=== PATIENT | female | born 1995 | race Caucasian/White ===

== ENCOUNTER 2021-09-22 20:17 | Emergency (ER) | payer OTHER, SELFPAY ==
--- NOTE | ~2021-09-22 | CT_ITS ---
EXAMINATION: CT abdomen pelvis w con DATE: 09/22/2021 22:44 INDICATION: Right lower quadrant pain. TECHNIQUE: Computed tomography (CT) of the abdomen and pelvis was performed with 100 cc Omnipaque 350 intravenous contrast. The dose-length product was 649.36 mGy-cm. Automated exposure control and iter ative reconstruction technique were employed. COMPARISON: None. FINDINGS: Lung bases are unremarkable. Heart size normal. No significant pleural or pericardial effus ion. No significant vascular abnormality. No lymphadenopathy. The liver, spleen, pancreas, adrenal glands and kidneys are unremarkable. Gallbladder is present. Non obstructive bowel gas pattern. The appendix is normal caliber without significant periappendiceal inf lammation to suggest appendicitis. There is a 3.3 cm complicated left ovarian cyst. Moderate free flu id in the pelvis. No free air. No acute osseous abnormality. IMPRESSION: 1. Septated 3.3 cm left ovarian cyst. Moderate free fluid in the pelvis. Reviewed, dictated and finalized at location A.
[2021-09-22 20:34] VITALS: BP 145/78; PULSE 87; RESP 18; TEMP 36.8; O2SAT 99
[2021-09-22 21:07] LABS: Basophils Percent Auto 0.2 % (0.2-1.2); Eosinophils Absolute Auto 0.1 K/mm3 (0-0.3); Eosinophils Percent Auto 0.7 % (0-4.4); Hematocrit 41.3 % (37.0-47.0); Hemoglobin 14.2 g/dL (12.0-15.0); Immature Granulocyte Absolute 0.04 K/mm3 (0.00-0.031); Immature Granulocyte Percent A 0.4 % (0-0.5); Lymphocytes Absolute Auto 0.99 K/mm3 (0.9-3.2); Lymphocytes Percent Auto 9.2 % (18.3-44.2); Mean Corpuscular HGB Conc 34.4 g/dl (32-36); Mean Corpuscular Hemoglobin 30.9 pg (26-34); Mean Corpuscular Volume 89.8 fl (80-100); Mean Platelet Volume 10.8 fl (7.4-10.4); Monocytes Absolute Auto 0.5 K/mm3 (0.1-0.6); Monocytes Percent Auto 4.7 % (2.6-8.5); Neutrophils Absolute Auto 9.1 K/mm3 (1.3-6.7); Neutrophils Percent Auto 84.8 % (45.5-73.1); Platelet Count Result 200 k/mm3 (150-375); Red Cell Distribution Width 12.5 % (11.5-14.5); White Blood Count 10.7 K/mm3 (4.5-10.0)
[2021-09-22] MEDS: SODIUM CHLORIDE 0.9% IV 1,000 ML 999 ML IV CONT (21:07)
[2021-09-22] MEDS: ONDANSETRON INJ 4 MG/2 ML VIAL IV PUSH (21:08)
[2021-09-22 21:22] LABS: Add Urine Microscopic? NO; Appearance Urine Clear (Clear); Bilirubin Urine Negative (Negative); Blood Urine Negative (Negative); Color Urine Yellow (Yellow); Glucose Urine UA Negative (Negative); Ketones Urine Negative (Negative); Leukocyte Esterase Ur Negative LEU/UL (Negative); Nitrate Urine Negative (Negative); Protein Urine Negative (Negative); Specific Grav Ur 1.015 (1.001-1.035); Urobilinogen Urine Negative mg/dL (<2.0)
[2021-09-22 21:23] LABS: Alanine Aminotransferase 19 U/L (4-35); Albumin Level 4.7 g/dL (3.5-5.1); Alkaline Phosphatase 77 U/L (38-126); Anion Gap 9 mmol/L (8-16); Aspartate Amino Transferase 26 U/L (14-36); Bilirubin,Total 0.4 mg/dL (0.2-1.3); Blood Urea Nitrogen 10 mg/dL (7-17); Calcium 9.5 mg/dL (8.4-10.2); Carbon Dioxide 24 mmol/L (22-30); Chloride 101 mmol/L (98-107); Estimated CRCL calculation 121 ml/min; Estimated Glomerular Filt Rate > 60; Glucose 91 mg/dL (65-110); Lipase 62 U/L (23-300); Potassium 3.8 mmol/L (3.4-5.0); Sodium 134 mmol/L (137-145)
[2021-09-22] MEDS: KETOROLAC 30 MG/ML VIAL (*BKC) IV PUSH (22:32)
--- NOTE | 2021-09-22 23:03 | ED.NAVMDI ---
HPI - Nausea/Vomiting/Diarrhea General Chief complaint: Nausea/Vomiting/Diarrhea Stated complaint: N/V, bodyaches Time Seen by Provider: 09/22/21 20:45 Source: patient and family Mode of arrival: ambulatory Limitations: no limitations History of Present Illness HPI Narrative: 25-year-old with no major medical problems here with complaints of nausea, vomiting and diarrhea and right lower abdominal pain since last night. Patient states that she ate spaghetti made by her boyfriend both of them got sick after eating. But she continues to have nausea and vomiting and pain. No history of fever or chills. MD elicited complaint: nausea, vomiting, diarrhea and abdominal pain Onset (ago): day(s) (1) Description of vomiting: food contents and watery Description of diarrhea: watery Associated nausea: Yes Associated abdominal pain: Yes Location of pain: RLQ Pain consistency: constant Severity: moderate Quality: cramping Exacerbating factors: none Relieving factors: none Context: possible food poisoning Associated symptoms: denies other symptoms Related Data Allergies Allergy/AdvReac Type Severity Reaction Status Date / Time amoxicillin Allergy Unknown Verified 09/22/21 20:36 Review of Systems Review of Systems: All systems reviewed & are unremarkable except as noted in HPI and below Constitutional: Constitutional: Reports no additional constitutional complaints Eyes: Eyes: Reports no additional eye complaints ENT: Reports system reviewed and no additional complaints, except as documented Cardiovascular: Cardiovascular: Reports no additional cardiovascular complaints Respiratory: Respiratory: Reports no additional respiratory complaints Gastrointestinal: Gastrointestinal: Reports as per HPI Musculoskeletal: Musculoskeletal: Reports no additional musculoskeletal complaints Integumentary/Breasts: Skin/Breast: Reports system reviewed and no additional complaints, except as docu Neurologic: Reports system reviewed and no additional complaints, except as documented Exam Narrative: GENERAL: Well-appearing, well-nourished, and in no acute distress. HEAD: Normocephalic, atraumatic. EYES: PERRLA and EOMI. NECK: Supple. CHEST: Clear to auscultation. No respiratory distress. HEART: Regular rate and rhythm. No murmur heard. Normal peripheral pulses. ABDOMEN: Soft, mild tenderness in the right lower abd , nondistended EXTREMITIES: Normal range of motion. No edema. SKIN: Warm, dry, no rash. NEURO: No focal deficits. Alert and oriented x3. PSYCH: Normal mood and affect. Course Course Emergency Course: Patient feeling much better after IV Toradol for pain and Zofran for nausea given IV fluids. Informed her about her lab work and CT findings. At this time her pain most likely is from gastroenteritis. Advised her to take Zofran for nausea as needed and Bentyl for pain. She does feel comfortable going home. Vital Signs Vital signs: Vital Signs Temperature 36.8 C 09/22/21 20:34 Pulse Rate 87 09/22/21 20:34 Respiratory Rate 18 09/22/21 20:34 Blood Pressure 145/78 H 09/22/21 20:34 Pulse Oximetry 99 09/22/21 20:34 Temperature 36.8 C 09/22/21 20:34 Pulse Rate 87 09/22/21 20:34 Respiratory Rate 18 09/22/21 20:34 Blood Pressure 145/78 H 09/22/21 20:34 Pulse Oximetry 99 09/22/21 20:34 MDM - Nausea/Vomiting/Diarrhea Differential Diagnosis Differential diagnosis: Likely food poisoning, gastroenteritis and dehydration Lab Data Result diagrams: 09/22/21 21:00 09/22/21 21:00 Labs: Lab Results 09/22/21 09/22/21 09/22/21 Range/Units 21:00 21:00 21:12 WBC 10.7 H (4.5-10.0) K/mm3 RBC 4.60 (4.2-5.4) M/mm3 Hgb 14.2 (12.0-15.0) g/dL Hct 41.3 (37.0-47.0) % MCV 89.8 (80-100) fl MCH 30.9 (26-34) pg MCHC 34.4 (32-36) g/dl RDW 12.5 (11.5-14.5) % Plt Count 200 (150-375) k/mm3 MPV 10.8 H (7.4-10.4) fl Immature Gran % (Auto)
--- NOTE | 2021-09-22 23:10 | PC.NURSE ---
assumed care of pt at this time, report received from Tayler BISWAS. Pt states she feels better after pain medication, rates pain 6/10.
[2021-09-22 23:24] VITALS: BP 125/68; PULSE 74; RESP 16; O2SAT 99
== END 2021-09-22 23:27 | disposition home or self-care (01) ==
PROVIDERS: Emergency Provider Family Medicine
DX: K52.9 Noninfective gastroenteritis and colitis, unspecified (principal)
CPT/HCPCS: 36415; 74177; 80053; 81003; 81025; 83690; 85025; 96361; 96374; 96375; 99284; J1885; J2405; J7030; Q9967

== ENCOUNTER 2022-01-28 21:12 | Emergency (ER) | payer OTHER, SELFPAY ==
--- NOTE | ~2022-01-28 | CT_ITS ---
EXAMINATION: CT abdomen pelvis wo con DATE: 01/28/2022 23:09 INDICATION: Left flank pain TECHNIQUE: Computed tomography (CT) of the abdomen and pelvis was performed without intravenous contr ast. The dose-length product was 255.18 mGy-cm. Automated exposure control and iterative reconstructi on technique were employed. COMPARISON: CT dated 09/22/2021. FINDINGS: Lung bases unremarkable. Heart size normal. No significant pleural or pericardial effusion. The liver, spleen, pancreas, adrenal glands and kidneys are unremarkable. No renal stones. No ureter al stones or hydronephrosis. Nonobstructive bowel gas pattern. No significant vascular abnormality. N o lymphadenopathy. Colonic diverticulosis without evidence for diverticulitis. No acute osseous abnor mality. Gallbladder is present. Normal appendix. IMPRESSION: 1. No acute abdominal abnormality. No findings to account for symptoms. Reviewed, dictated and finalized at location A. [facility] [employer]
--- NOTE | ~2022-01-28 | XR_ITS ---
EXAMINATION: XR chest 2V 01/28/2022 22:35 INDICATION: Cough PROCEDURE: 2 view chest COMPARISON: No prior studies for comparison. FINDINGS: The lungs are clear. The cardiomediastinal silhouette is within normal limits. There are no pleural effusions. There is no pneumothorax suspected. IMPRESSION: 1: NO ACUTE CARDIOPULMONARY DISEASE. Reviewed, dictated and finalized at location A. [employer]
[2022-01-28 21:38] VITALS: BP 130/70; PULSE 102; RESP 18; TEMP 38.8; O2SAT 99
[2022-01-28 22:33] LABS: Basophils Percent Auto 0.2 % (0.2-1.2); Hematocrit 36.3 % (37.0-47.0); Hemoglobin 12.3 g/dL (12.0-15.0); Immature Granulocyte Absolute 0.02 K/mm3 (0.00-0.031); Immature Granulocyte Percent A 0.5 % (0-0.5); Lymphocytes Absolute Auto 0.57 K/mm3 (0.9-3.2); Lymphocytes Percent Auto 14.2 % (18.3-44.2); Mean Corpuscular HGB Conc 33.9 g/dl (32-36); Mean Corpuscular Hemoglobin 30.4 pg (26-34); Mean Corpuscular Volume 89.9 fl (80-100); Mean Platelet Volume 10.9 fl (7.4-10.4); Monocytes Absolute Auto 0.6 K/mm3 (0.1-0.6); Monocytes Percent Auto 15.7 % (2.6-8.5); Neutrophils Absolute Auto 2.8 K/mm3 (1.3-6.7); Neutrophils Percent Auto 68.4 % (45.5-73.1); Platelet Count Result 190 k/mm3 (150-375); Red Blood Count 4.04 M/mm3 (4.2-5.4); Red Cell Distribution Width 12.7 % (11.5-14.5)
[2022-01-28] MEDS: ACETAMINOPHEN 500 MG TABLET 1000 MG PO (22:39)
[2022-01-28] MEDS: SODIUM CHLORIDE 0.9% IV 1,000 ML 999 ML IV CONT (22:39)
[2022-01-28 22:41] LABS: Alanine Aminotransferase 20 U/L (4-35); Albumin Level 4.6 g/dL (3.5-5.1); Alkaline Phosphatase 62 U/L (38-126); Anion Gap 10 mmol/L (8-16); Aspartate Amino Transferase 35 U/L (14-36); Bilirubin,Total 0.3 mg/dL (0.2-1.3); Blood Urea Nitrogen 8 mg/dL (7-17); Calcium 8.6 mg/dL (8.4-10.2); Carbon Dioxide 22 mmol/L (22-30); Chloride 106 mmol/L (98-107); Estimated CRCL calculation 117 ml/min; Estimated Glomerular Filt Rate > 60; Glucose 86 mg/dL (65-110); Potassium 3.5 mmol/L (3.4-5.0); Sodium 138 mmol/L (137-145)
[2022-01-28 22:42] LABS: Add Urine Microscopic? YES; Appearance Urine Cloudy (Clear); Bacteria Urine Trace /hpf; Bilirubin Urine Negative (Negative); Blood Urine 1+ (Negative); Color Urine Yellow (Yellow); Glucose Urine UA Negative (Negative); Ketones Urine Negative (Negative); Leukocyte Esterase Ur Negative LEU/UL (Negative); Mucus Urine Few /lpf; Nitrate Urine Negative (Negative); Protein Urine Negative (Negative); Specific Grav Ur 1.029 (1.001-1.035); Squamous Epithelial Cell Urine Few /hpf (Few); WBC Urine 0-3 /hpf
[2022-01-28 23:30] VITALS: BP 124/71; PULSE 87; RESP 16; TEMP 37.8; O2SAT 96
[2022-01-28] MEDS: KETOROLAC 30 MG/ML VIAL (*BKC) IV PUSH (23:48)
--- NOTE | 2022-01-28 23:51 | ED.GENADULT ---
HPI - General Adult General Chief complaint: Upper Respiratory Infection Stated complaint: fever, lower back pain Time Seen by Provider: 01/28/22 22:02 History of Present Illness HPI narrative: Patient is a 26-year-old female who presents ER with mild left-sided abdominal pain. Cramping going to left back. Associated with fever. No urinary frequency urgency or dysuria. No diarrhea or constipation. Denies any vaginal bleeding or discharge. Recently diagnosed with COVID 2 months ago but has improved. She reports since then she has had chronic rhinorrhea with cough. She has no new shortness of breath or change in her mucus. No sinus headache or tenderness of the face. Related Data Home Medications Medication Instructions Recorded Confirmed norethindrone-e.estradiol-iron tablet 01/28/22 [Aurovela Fe 1-20 (28)] Allergies Allergy/AdvReac Type Severity Reaction Status Date / Time amoxicillin Allergy Hives Verified 01/28/22 22:13 Review of Systems Review of Systems: All systems reviewed & are unremarkable except as noted in HPI and below Constitutional: Constitutional: Denies chills, Denies fever(s) and Denies weakness ENT: Reports nasal congestion and Denies sore throat Cardiovascular: Cardiovascular: Denies chest pain, Denies rapid heart rate and Denies radiating jaw, neck or arm pain Respiratory: Respiratory: Reports cough, Denies dyspnea and Denies wheezing Gastrointestinal: Gastrointestinal: Reports abdominal pain, Denies constipation, Denies diarrhea, Denies nausea and Denies vomiting Genitourinary: Genitourinary: Denies abnormal vaginal bleeding, Denies nocturia, Reports flank pain and Denies urinary incontinence Neurologic: Denies headache(s), Denies focal weakness and Denies numbness PMFSH Past Medical History Medical History (Updated 01/29/22 @ 01:12 by Jose Cameron MD) History of ovarian cyst Surgical History Surgical History (Updated 01/28/22 @ 23:57 by Jose Cameron MD) No pertinent past surgical history Social History Social History (Updated 01/28/22 @ 23:57 by Jose Cameron MD) Substance use type: marijuana Exam Narrative: GENERAL: Well-appearing, well-nourished, and in no acute distress. HEAD: Normocephalic, atraumatic. ENT: Mucous membranes moist. CHEST: Clear to auscultation. No respiratory distress. HEART: Regular rate and rhythm. Normal peripheral pulses. ABDOMEN: Soft, nontender, nondistended. EXTREMITIES: Normal range of motion. No edema. SKIN: Warm, dry, no rash. NEURO: Alert and oriented x3. Course Course Emergency Course: Patient resting comfortably. Pain improved. Discharge home. Viral syndrome. Vital Signs Vital signs: Vital Signs Temperature 101.8 F H 01/28/22 21:38 Pulse Rate 102 H 01/28/22 21:38 Respiratory Rate 18 01/28/22 21:38 Blood Pressure 130/70 01/28/22 21:38 Pulse Oximetry 99 01/28/22 21:38 Temperature 100.1 F H 01/28/22 23:30 Pulse Rate 87 01/28/22 23:30 Respiratory Rate 16 01/28/22 23:30 Blood Pressure 124/71 01/28/22 23:30 Pulse Oximetry 96 01/28/22 23:30 Medical Decision Making Vital Signs Vital Signs: Vital Signs Temperature 101.8 F H 01/28/22 21:38 Pulse Rate 102 H 01/28/22 21:38 Respiratory Rate 18 01/28/22 21:38 Blood Pressure 130/70 01/28/22 21:38 Pulse Oximetry 99 01/28/22 21:38 Temperature 100.1 F H 01/28/22 23:30 Pulse Rate 87 01/28/22 23:30 Respiratory Rate 16 01/28/22 23:30 Blood Pressure 124/71 01/28/22 23:30 Pulse Oximetry 96 01/28/22 23:30 Lab Data Result diagrams: 01/28/22 22:24 01/28/22 22:24 Labs: Lab Results 01/28/22 01/28/22 01/28/22 Range/Units 22:24 22:24 22:24 WBC 4.0 L (4.5-10.0) K/mm3 RBC 4.04 L (4.2-5.4) M/mm3 Hgb 12.3 (12.0-15.0) g/dL Hct 36.3 L (37.0-47.0) % MCV 89.9 (80-100) fl MCH 30.4 (26-34) pg MCHC 33.9 (32-36) g/dl RDW 12.7
[2022-01-29 01:30] VITALS: BP 106/60; PULSE 69; RESP 18; TEMP 37; O2SAT 97
== END 2022-01-29 01:32 | disposition home or self-care (01) ==
PROVIDERS: Emergency Provider Emergency Medicine
DX: B34.9 Viral infection, unspecified (principal); R10.9 Unspecified abdominal pain; Z86.16 Personal history of COVID-19
CPT/HCPCS: 36415; 71046; 74176; 80053; 81001; 81025; 85025; 96361; 96374; 99284; A9270; J1885; J7030

== ENCOUNTER 2022-09-16 13:58 | Emergency (ER) | payer OTHER, SELFPAY ==
[2022-09-16 14:02] VITALS: BP 149/101; PULSE 70; RESP 20; TEMP 36.6; O2SAT 99
--- NOTE | 2022-09-16 14:19 | ED.NECK ---
HPI - Neck Pain/Injury General Chief Complaint: Neck Pain/Injury Stated Complaint: neck pain Time Seen by Provider: 09/16/22 14:07 History of Present Illness HPI Narrative: 26-year-old female who presents to the emergency room for evaluation of neck pain. Patient states that she was driving to work this morning, she casually looked over her left shoulder before changing lanes, felt a pulling sensation to the left side of her neck. Patient states that she is unable to look to the left and experiences pain when attempting to look to the right. Patient does endorse a history of torticollis. Patient states that she went to the chiropractor prior to arrival and did not experience any relief of her neck pain. Related Data Home Medications Medication Instructions Recorded Confirmed norethindrone 1 mg-ethinyl tablet 01/28/22 estradiol 20 mcg (21)-iron 75 mg (7) tablet (Aurovela Fe 1-20 (28)) Allergies Allergy/AdvReac Type Severity Reaction Status Date / Time amoxicillin Allergy Hives Verified 01/28/22 22:13 Review of Systems Review of Systems: CONSTITUTIONAL: Denies fever, chills, or sweats. EYES: Denies visual changes, redness, or discharge. ENT: Denies rhinorrhea, congestion, sore throat, or otalgia. CARDIOVASCULAR: Denies chest pain, palpitations, or edema. RESPIRATORY: Denies cough or dyspnea. GASTROINTESTINAL: Denies abdominal pain, nausea, vomiting, or diarrhea. GENITOURINARY: Denies dysuria or hematuria. SKIN: Denies rash or itching. MUSCULOSKELETAL: Reports neck pain NEUROLOGIC: Denies headache, numbness, dizziness, or weakness. PSYCHIATRIC: Denies anxiety or depression. PMFSH Past Medical History Medical History History of ovarian cyst Surgical History Surgical History No pertinent past surgical history Social History Social History Substance use type: marijuana Exam Narrative: GENERAL: Well-appearing, well-nourished, no physical limitations, and in no acute distress. HEAD: Normocephalic, atraumatic. EYES: Conjunctivae normal, PERRLA and EOMI. NECK: Supple. CHEST: Clear to auscultation. No respiratory distress. No wheezes rales or rhonchi. No tenderness. HEART: Regular rate and rhythm. No murmur heard. Normal peripheral pulses. BACK: No midline cervical tenderness, step-offs, bony abnormality; +TTP to left trapezius muscle, LROM with lateral bend and rotation EXTREMITIES: Normal range of motion. No edema. No clubbing or cyanosis SKIN: Warm, dry, no rash. No noted wounds NEURO: No focal deficits. Alert and oriented x3. MAEW. CN's II-XI intact bilaterally, normal gait PSYCH: Cooperative. Normal mood and affect. Course Vital Signs Vital signs: Vital Signs Temperature 36.6 C 09/16/22 14:02 Pulse Rate 70 09/16/22 14:02 Respiratory Rate 20 09/16/22 14:02 Blood Pressure 149/101 H 09/16/22 14:02 Pulse Oximetry 99 09/16/22 14:02 Oxygen Delivery Room Air 09/16/22 14:02 Temperature 36.6 C 09/16/22 14:02 Pulse Rate 70 09/16/22 14:02 Respiratory Rate 20 09/16/22 14:02 Blood Pressure 149/101 H 09/16/22 14:02 Pulse Oximetry 99 09/16/22 14:02 Oxygen Delivery Room Air 09/16/22 14:02 Discharge Plan Discharge Clinical Impression: Strain of neck muscle Patient Disposition: Home, Self-Care Condition: Stable Instructions: Antibiotic Form, Spasmodic Torticollis (ED) Prescriptions: New methocarbamol 500 mg tablet 500 mg PO TID Qty: 21 0RF No Action norethindrone-e.estradiol-iron [Aurovela Fe 1-20 (28)] 1 mg-20 mcg (21)/75 mg (7) tablet Follow-up/Referrals: PHYSICIAN,PLASMA TABLE OPERATOR [Primary Care Provider] - Time of Disposition: 14:58
[2022-09-16] MEDS: KETOROLAC 30 MG/ML VIAL (*BKC) IV PUSH (14:36)
[2022-09-16] MEDS: diazePAM INJ (*CRX) 10 MG/2 ML SYRINGE 5 MG IV PUSH (14:36)
[2022-09-16] MEDS: fentaNYL CITRATE INJ (*CRX) 100 MCG/2 ML VIAL 50 MCG IV PUSH (15:26)
[2022-09-16 16:02] VITALS: BP 140/91; PULSE 59; RESP 16; O2SAT 98
== END 2022-09-16 16:05 | disposition home or self-care (01) ==
PROVIDERS: Emergency Provider Nurse Practitioner Family
DX: S16.1XXA Strain of muscle, fascia and tendon at neck level, initial encounter (principal); T14.90XA Injury, unspecified, initial encounter
CPT/HCPCS: 96374; 96375; 99284; J1885; J3010; J3360

== ENCOUNTER 2024-10-27 10:08 | Emergency (ER) | payer OTHER, SELFPAY ==
[2024-10-27 10:09] VITALS: BP 122/64; PULSE 41; RESP 20; TEMP 36.8; O2SAT 100
[2024-10-27 10:26] LABS: BEDSIDEPREGUCG Negative (Negative)
--- NOTE | 2024-10-27 10:40 | ECG_ITS ---
Test Date: 2024-10-27 10:44:03 Measurements Intervals [place] Rate: 39 P: 34 [place]: 117 QRS: 48 QRSD: 105 T: 35 QT: 519 QTc: 423 Interpretive Statements SINUS BRADYCARDIA WITH SHORT W[place] INTERVAL CRITICAL TEST RESULT No previous ECG available for comparison Electronically Signed On 10-27-2024 12:17:32 [employer] MACHINE TENDER by Kings Castrejon M.D.
[2024-10-27 10:43] LABS: Basophils Percent Auto 0.2 % (0.2-1.2); Eosinophils Percent Auto 0.2 % (0-4.4); Hematocrit 36.3 % (37.0-47.0); Hemoglobin 12.2 g/dL (12.0-15.0); Immature Granulocyte Absolute 0.05 K/mm3 (0.00-0.031); Immature Granulocyte Percent A 0.4 % (0-0.5); Lymphocytes Absolute Auto 1.57 K/mm3 (0.9-3.2); Mean Corpuscular HGB Conc 33.6 g/dl (32-36); Mean Corpuscular Hemoglobin 29.2 pg (26-34); Mean Corpuscular Volume 86.8 fl (80-100); Mean Platelet Volume 10.7 fl (7.4-10.4); Monocytes Absolute Auto 0.6 K/mm3 (0.1-0.6); Monocytes Percent Auto 4.2 % (2.6-8.5); Platelet Count Result 339 k/mm3 (150-375); Red Blood Count 4.18 M/mm3 (4.2-5.4); Red Cell Distribution Width 12.9 % (11.5-14.5); White Blood Count 14.2 K/mm3 (4.5-10.0)
--- NOTE | 2024-10-27 10:46 | ED_ITS ---
HPI - Nausea/Vomiting/Diarrhea General Chief complaint: Nausea/Vomiting/Diarrhea Stated complaint: vomiting Time Seen by Provider: 10/27/24 10:22 Source: patient and family (Father) Mode of arrival: ambulatory Limitations: no limitations History of Present Illness HPI Narrative: Patient presents with nonbilious emesis wsince 0100 a.m. which was associated with low abdominal pain initially but now upper abdominal pain from dry heaving. She has also been having some diarrhea which she notes has been blood tinged with mucus. All of this is new and she notes that she was okay yesterday. No underlying gastrointestinal issues and does not follow with a peat shredder tender. Has never a colonoscopy. She notes that her bowel movements have been infrequent but simple. She does not if she is nauseated. She denies any fevers or chills. No Prior abdominal surgeries. She was recently on doxycycline last week for a head cold. No recent travel. Denies any vaginal bleeding or discharge. Last oral intake was at 10:00 p.m. but she denies any current appetite. No dysuria, hematuria urgency or frequency. She denies any sick contacts. She notes that she had diaphoretic while vomiting. She does use marijuana nearly daily. Last menstrual period was the 2nd week of September. Related Data Home Medications Medication Instructions Recorded Confirmed norethindrone 1 mg-ethinyl tablet 01/28/22 estradiol 20 mcg (21)-iron 75 mg (7) tablet (Aurovela Fe 1-20 (28)) Allergies Allergy/AdvReac Type Severity Reaction Status Date / Time amoxicillin Allergy Hives Verified 10/27/24 10:35 [facility] Past Medical History Medical History Bradycardia History of ovarian cyst Surgical History Surgical History No pertinent past surgical history Social History Social History (Updated 10/29/24 @ 11:31 by Julia Roberson MD) Substance use type: marijuana Other substance usage details: near daily Living arrangements: other Additional living arrangements comments: with boyfriend and child Exam Narrative: GENERAL: well-nourished in mild acute distress. HEAD: Normocephalic, atraumatic. EYES: Non injected, non icteric ENT: Nares clear, no rhinorrhea or epistaxis. NECK: Supple. CHEST: Speaking in full sentences. No respiratory distress. HEART: Bradycardic rate and rhythm. . ABDOMEN: Soft, nondistended. Nontender to palpation throughout without rigidity or guarding. Not peritoneal. EXTREMITIES: Normal range of motion. No lower extremity edema. SKIN: Warm, dry, no rash. NEURO: No focal deficits. Alert and oriented x3. Patient is observed ambulating to the restroom. PSYCH: Normal mood and affect. Course Vital Signs Vital signs: Vital Signs Temperature 98.3 F 10/27/24 10:09 Pulse Rate 41 L 10/27/24 10:09 Respiratory Rate 20 10/27/24 10:09 Blood Pressure 122/64 10/27/24 10:09 Pulse Oximetry 100 10/27/24 10:09 Oxygen Delivery Room Air 10/27/24 10:09 Temperature 98.3 F 10/27/24 10:09 Pulse Rate 43 L 10/27/24 14:29 Respiratory Rate 18 10/27/24 14:29 Blood Pressure 126/56 L 10/27/24 14:29 Pulse Oximetry 99 10/27/24 14:29 Oxygen Delivery Room Air 10/27/24 10:09 MDM - Nausea/Vomiting/Diarrhea MDM Narrative Medical decision making narrative: Patient presents with acute onset vomiting and diarrhea since this morning. Having low abdominal pain and now epigastric after dry heaving. In the emergency department she is afebrile with vital signs notable for bradycardia. Patient states she has been worked up previously for her bradycardia and this is chronic. The differential for acute ( less than 14d) diarrhea includes infectious etiologies (viral, preformed toxins, toxins formed after colonization, invasive bacteria, and parasites), medications, inflammatory causes (IBD, radiation enteritis, ischemic colitis, diverticulitis), malabsorption, secretory causes, or motility disorders. Patient has a combination of bradycardia and a prolonged QT. For this reason was be judicious with medication. for example, do not desire to use QT prolonging agents. However scopolamine has been associated with worsened bradycardia and given her heart rate is in the 30s/40s, will defer that. Although ondansetron is questionable, it seems that palonosetron does not have this same effect and is more efficacious so will order this. test negative. Abdominal exam is otherwise benign so will defer CT imaging at this time. Patient continued to have nausea approximately 12:30 p.m. per nurse. She is also requesting something for pain. Will trial a 1 time dose of dexamethasone, IV diphenhydramine, and a small dose of morphine. Patient is reassessed at approximately 2:10 p.m. and she states she is feeling much better. She occasionally has small scant episodes of diarrheal stool but has not had recurrence of vomiting ever since receiving the diphenhydramine. Discharged home in stable condition advised to rest and maintain her hydration. Given emergency department return precautions. Also provided prescriptions for short course of diphenhydramine and dexamethasone which are safe alternatives for her symptoms setting bradycardia and prolonged QT. Differential Diagnosis Differential diagnosis: Likely food poisoning, gastroenteritis, drug-induced nausea and vomiting, dehydration and other ( including hyperemesis gravidarium, cannabinoid hyperemesis syndrome) Lab Data Attestation: I reviewed the patient's lab results. Lab results narrative: mild leukocytosis possibly due to dehydration/ stress response. very mild hype rglycemia without anion gap acidosis. Normal renal function. No marked electrolyte abnormalities. 10/27/24 10:37 10/27/24 10:37 Labs: Lab Results 10/27/24 10/27/24 10/27/24 Range/Units 10:24 10:36 10:37 WBC 14.2 H (4.5-10.0) K/mm3 RBC 4.18 L (4.2-5.4) M/mm3 Hgb 12.2 (12.0-15.0) g/dL Hct 36.3 L (37.0-47.0) % MCV 86.8 (80-100) fl MCH 29.2 (26-34) pg MCHC 33.6 (32-36) g/dl RDW 12.9 (11.5-14.5) % Plt Count 339 D (150-375) k/mm3 MPV 10.7 H (7.4-10.4) fl Immature Gran % (Auto) 0.4 (0-0.5) % Neut % (Auto) 84.0 H (45.5-73.1) % Lymph % (Auto) 11.0 L (18.3-44.2) % [place] % (Auto) 4.2 (2.6-8.5) % Eos % (Auto) 0.2 (0-4.4) % Baso % (Auto) 0.2 (0.2-1.2) % Lymph # (Auto) 1.57 (0.9-3.2) K/mm3 [place] # (Auto) 0.6 (0.1-0.6) K/mm3 Eos # (Auto) 0.0 (0-0.3) K/mm3 Baso # (Auto) 0.0 (0.0-0.1) K/mm3 Abs Immat Gran (auto) 0.05 H (0.00-0.031) K/mm3 Absolute Neuts (auto) 12.0 H (1.3-6.7) K/mm3 Absolute Nucleated RBC 0.000 (0.0-0.012) K/mm3 Nucleated RBC % 0.0 (0.0-0.2) % Sodium 138 (137-145) mmol/L Potassium 3.6 (3.4-5.0) mmol/L Chloride 103 (98-107) mmol/L Carbon Dioxide 27 (22-30) mmol/L Anion Gap 8 (4-12) mmol/L BUN 12 (7-17) mg/dL Creatinine 0.80 (0.7-1.0) mg/dL Estim Creat Clear Calc 107 ml/min Estimated GFR > 60 (59 - ) Glucose 138 H (65-110) mg/dL Calcium 9.1 (8.4-10.2) mg/dL Magnesium 1.8 (1.6-2.3) mg/dL Total Bilirubin 0.5 (0.2-1.3) mg/dL AST 22 (14-36) U/L ALT 22 (6-35) U/L Alkaline Phosphatase 94 (38-126) U/L Total Protein 8.0 (6.3-8.2) g/dL Albumin 4.7 (3.5-5.1) g/dL Lipase 65 (23-300) U/L Urine Color Yellow (Yellow) Urine Appearance Turbid H (Clear) Urine pH >=9.0 H (5.0-9.0) Ur Specific [place] 1.021 (1.001-1.035) Urine Protein Trace (Negative) mg/dL Urine Glucose (UA) Negative (Negative) mg/dL Urine Ketones Negative (Negative) mg/dL Ur Blood (Man) Negative (Negative) Urine Nitrate Negative (Negative) Urine Bilirubin Negative (Negative) Urine Urobilinogen 0.2 (<2.0) mg/dL Leukocyte Esterase Rfl Negative (Negative) YONY/UL Urine RBC 0-2 (0-2) /hpf Urine WBC 0-5 (0-3) /hpf Ur Squamous Epith Cells None seen (Few) /hpf Urine Bacteria None seen /hpf Urine Casts 0-2 POC Urine HCG, Qual Negative (Negative) C. difficile (PCR) Influenza A (RT-PCR) (Negative) Influenza B (RT-PCR) (Negative) SARS-CoV-2 RNA (RT-PCR) (Negative) 10/27/24 10/27/24 Range/Units 11:23 11:57 WBC (4.5-10.0) K/mm3 RBC (4.2-5.4) M/mm3 Hgb (12.0-15.0) g/dL Hct (37.0-47.0) % MCV (80-100) fl MCH (26-34) pg MCHC (32-36) g/dl RDW (11.5-14.5) % Plt Count (150-375) k/mm3 MPV (7.4-10.4) fl Immature Gran % (Auto) (0-0.5) % Neut % (Auto) (45.5-73.1) % Lymph % (Auto) (18.3-44.2) % [place] % (Auto) (2.6-8.5) % Eos % (Auto) (0-4.4) % Baso % (Auto) (0.2-1.2) % Lymph # (Auto) (0.9-3.2) K/mm3 [place] # (Auto) (0.1-0.6) K/mm3 Eos # (Auto) (0-0.3) K/mm3 Baso # (Auto) (0.0-0.1) K/mm3 Abs Immat Gran (auto) (0.00-0.031) K/mm3 Absolute Neuts (auto) (1.3-6.7) K/mm3 Absolute Nucleated RBC (0.0-0.012) K/mm3 Nucleated RBC % (0.0-0.2) % Sodium (137-145) mmol/L Potassium (3.4-5.0) mmol/L Chloride (98-107) mmol/L Carbon Dioxide (22-30) mmol/L Anion Gap (4-12) mmol/L BUN (7-17) mg/dL Creatinine (0.7-1.0) mg/dL Estim Creat Clear Calc ml/min Estimated GFR (59 - ) Glucose (65-110) mg/dL Calcium (8.4-10.2) mg/dL Magnesium (1.6-2.3) mg/dL Total Bilirubin (0.2-1.3) mg/dL AST (14-36) U/L ALT (6-35) U/L Alkaline Phosphatase (38-126) U/L Total Protein (6.3-8.2) g/dL Albumin (3.5-5.1) g/dL Lipase (23-300) U/L Urine Color (Yellow) Urine Appearance (Clear) Urine pH (5.0-9.0) Ur Specific [place] (1.001-1.035) Urine Protein (Negative) mg/dL Urine Glucose (UA) (Negative) mg/dL Urine Ketones (Negative) mg/dL Ur Blood (Man) (Negative) Urine Nitrate (Negative) Urine Bilirubin (Negative) Urine Urobilinogen (<2.0) mg/dL Leukocyte Esterase Rfl (Negative) YONY/UL Urine RBC (0-2) /hpf Urine WBC (0-3) /hpf Ur Squamous Epith Cells (Few) /hpf Urine Bacteria /hpf Urine Casts POC Urine HCG, Qual (Negative) C. difficile (PCR) Cancelled Negative Influenza A (RT-PCR) Negative (Negative) Influenza B (RT-PCR) Negative (Negative) SARS-CoV-2 RNA (RT-PCR) Negative (Negative) ECG Data EKG #1: Attestation: I personally reviewed and interpreted this ECG as follows: ECG completion date: 10/27/24 ECG completion time: 10:44 Interpretation: Sinus bradycardia at a rate of 39 beats per minute. AK interval 117. QRS 105. QT/ QTC 519/448. Good R-wave progression across the precordial leads. No T-wave inversions. EKG #2: Attestation: I personally reviewed and interpreted this ECG as follows: ECG completion date: 10/27/24 ECG completion time: 13:08 Interpretation: sinus bradycardia rate of 42 beats per minute. AK interval 129. QRS 93. QT/ QTC 511/452. Good R-wave progression across the precordial leads. Possible biphasic T-wave in lead 3 but otherwise upright in normal in contiguous inferior leads 2 and AVF. No other T-wave inversions. No sinus pauses. Discharge Plan Discharge Clinical Impression: Vomiting and diarrhea, Leukocytosis, Bradycardia, Gastroenteritis Patient Disposition: Home, Self-Care Condition: Stable Instructions: Antibiotic Form, Gastroenteritis (DC), Acute Nausea and Vomiting (DC), Acute Diarrhea (ED), Bradycardia (ED) Additional Instructions: As we discussed, your symptoms likely represent gastroenteritis and this is usually viral in nature thus no role for antibiotics. you can use the ondansetron/ Zofran that you are ready have at home but use it sparingly (ie. once). you can also use the medications as prescribed but of note the diphenhydramine can make you sleepy/tired. Rest and maintain your hydration taking gentle soap water and you can occasionally supplement this with Gatorade or Pedialyte for additional electrolytes. If you are going to a drink juice I recommend you dilute it. Avoid milk in the interim. Avoid using Imodium unless absolutely necessary. Follow-up with your primary care physician. Because you do not have the name of doctors listed below. Return to the emergency department with any new or worsening symptoms. Prescriptions: New dexamethasone 6 mg tablet 6 mg PO DAILY 4 Days Qty: 4 0RF Rx Instructions: starting 10/28 (received first dose ED 10/27); take before 9am diphenhydramine HCl [Allergy (diphenhydramine)] 25 mg capsule 25 mg PO TID PRN (Reason: nausea and vomiting) Qty: 14 0RF No Action methocarbamol 500 mg tablet 500 mg PO TID Qty: 21 0RF norethindrone-e.estradiol-iron [Aurovela Fe 1-20 (28)] 1 mg-20 mcg (21)/75 mg (7) tablet Follow-up/Referrals: Trell Rodas MD [Physician] - ( Family practice) PHYSICIAN,SECURITY ENGINEER [Primary Care Provider] - Stand Alone Forms: Work/School Release IP Time of Disposition: 14:13
[2024-10-27 10:49] LABS: Add Urine Microscopic? YES; Appearance Urine Turbid (Clear); Bacteria Urine None Seen /hpf; Bilirubin Urine Negative (Negative); Blood Urine Negative (Negative); Color Urine Yellow (Yellow); Glucose Urine UA Negative (Negative); Ketones Urine Negative (Negative); Leukocyte Esterase Ur Negative LEU/UL (Negative); Nitrate Urine Negative (Negative); Non Pathogenic Casts 0-2; Protein Urine Trace mg/dL (Negative); RBC Urine 0-2 /hpf (0-2); Specific Grav Ur 1.021 (1.001-1.035); Squamous Epithelial Cell Urine None Seen /hpf (Few); Urobilinogen Urine 0.2 mg/dL (<2.0); WBC Urine 0-5 /hpf (0-3); pH Urine >=9.0 (5.0-9.0)
[2024-10-27 11:03] LABS: Alanine Aminotransferase 22 U/L (6-35); Albumin Level 4.7 g/dL (3.5-5.1); Alkaline Phosphatase 94 U/L (38-126); Anion Gap 8 mmol/L (4-12); Aspartate Amino Transferase 22 U/L (14-36); Bilirubin,Total 0.5 mg/dL (0.2-1.3); Blood Urea Nitrogen 12 mg/dL (7-17); Calcium 9.1 mg/dL (8.4-10.2); Carbon Dioxide 27 mmol/L (22-30); Chloride 103 mmol/L (98-107); Estimated CRCL calculation 107 ml/min; Estimated Glomerular Filt Rate > 60; Glucose 138 mg/dL (65-110); Lipase 65 U/L (23-300); Potassium 3.6 mmol/L (3.4-5.0); Sodium 138 mmol/L (137-145)
[2024-10-27] MEDS: PALONOSETRON HCL 0.25 MG/5 ML VIAL IV PUSH (11:29)
[2024-10-27 11:34] LABS: Magnesium 1.8 mg/dL (1.6-2.3)
[2024-10-27 11:36] VITALS: BP 145/80; PULSE 44; RESP 17; O2SAT 100
[2024-10-27 12:09] LABS: Influenza A QL RT-PCR Negative (Negative); Influenza B QL RT-PCR Negative (Negative); SARS-CoV-2 RNA PCR Negative (Negative)
[2024-10-27] MEDS: LACTATED RINGERS 500 ML 999 ML IV CONT (12:23)
[2024-10-27 12:48] LABS: Toxigenic C. Diff NEGATIVE (NEGATIVE)
[2024-10-27] MEDS: MORPHINE SULFATE (*CRX) 4 MG/ML INJ IV PUSH (12:59)
[2024-10-27] MEDS: diphenhydrAMINE HCl INJ 50 MG/ML VIAL 25 MG IV PUSH (12:59)
[2024-10-27] MEDS: dexAMETHasone 2 MG TABLET 10 MG PO (13:00)
[2024-10-27 13:08] VITALS: BP 145/68; PULSE 43; RESP 16; O2SAT 98
[2024-10-27 14:29] VITALS: BP 126/56; PULSE 43; RESP 18; O2SAT 99
--- NOTE | 2024-10-28 10:28 | ECG_ITS ---
Test Date: 2024-10-27 13:08:03 Measurements Intervals [place] Rate: 42 P: 51 LA: 129 QRS: 47 QRSD: 93 T: 34 QT: 511 QTc: 429 Interpretive Statements SINUS BRADYCARDIA Compared to ECG 10/27/2024 10:44:03 Short LA interval no longer present Electronically Signed On 10-28-2024 14:27:16 THREAD SINGER by Phoenix Starr M.D.
== END 2024-10-27 14:40 | disposition home or self-care (01) ==
PROVIDERS: Emergency Provider Student in an Organized Health Care Education/Training Program
DX: R11.10 Vomiting, unspecified (principal); D72.829 Elevated white blood cell count, unspecified; R00.1 Bradycardia, unspecified; K52.9 Noninfective gastroenteritis and colitis, unspecified; Z20.822 Contact with and (suspected) exposure to COVID-19
CPT/HCPCS: 36415; 80053; 81001; 81025; 83690; 83735; 85025; 87493; 87636; 93005; 96361; 96374; 96375; 99284; J1200; J2270; J2469; J7120; J8540